=== PATIENT | male | born 1945 | race Caucasian/White ===

== ENCOUNTER 2023-12-20 10:29 | Outpatient (CLI) | payer MEDICARE, SELFPAY ==
[2023-12-20 12:07] LABS: PSA Diagnostic* < 0.06 ng/mL (0.10-4.00)
== END 2023-12-20 10:30 | disposition home or self-care (01) ==
PROVIDERS: Visit Provider Physician Assistant
DX: C61 Malignant neoplasm of prostate (principal)
CPT/HCPCS: 36415; 84153

== ENCOUNTER 2024-02-04 18:54 | Emergency (ER) | payer MEDICARE, SELFPAY ==
[2024-02-04] VITALS (38 sets, daily range): BP systolic 127–166; BP diastolic 57–77; PULSE 59–73; RESP 12–18; O2SAT 94–100; BMI 27.2
--- NOTE | 2024-02-04 18:58 | CRLHL7_ITS ---
For Patients: As a result of the Century Cures Act, medical imaging exams and procedure reports are released immediately into your electronic medical record. You may view this report before your referring provider. If you have questions, please contact your health care provider. INDICATION: Right-sided weakness. COMPARISON: None. TECHNIQUE: CT of the head without IV contrast. Coronal and sagittal reconstructions. FINDINGS: No intracranial hemorrhage, mass effect, or evidence of acute infarct. No midline shift. No abnormal extra-axial fluid collections. Mild generalized cerebral and cerebellar volume loss. Chronic appearing lacunar infarct in the right lateral basal ganglia. Ventricular caliber is within normal limits. Orbits and extraocular muscles are symmetric. The visualized paranasal sinuses and mastoid air cells are clear. Nonspecific subcutaneous calcification in the right temporal scalp. Soft tissues are otherwise unremarkable. No acute fracture identified. IMPRESSION: 1. No acute intracranial findings. 2. Chronic appearing lacunar infarct in the right lateral basal ganglia. Please note that all CT scans at this facility use dose modulation, iterative reconstruction, and/or weight-based dosing when appropriate to reduce radiation dose to as low as reasonably achievable. Dictated by Ayana Garibay MD @ 02/04/2024 7:30:58 PM (Electronically Signed)
--- NOTE | 2024-02-04 19:02 | ED_ITS ---
HPI - Neuro Symptoms/Deficit General Time Seen by Provider: 19:02 Date Seen: 02/04/24 Chief Complaint: Neuro Symptoms/Altered Deficit Stated Complaint: Dizziness Time Seen by Provider: 02/04/24 19:01 Source: patient and family Mode of arrival: ambulatory Limitations: no limitations History of Present Illness HPI Narrative: Torito is a very pleasant 78-year-old male with history of 2 heart attacks, type 2 diabetes, hyperlipidemia who comes to the emergency room for evaluation regarding dizziness right-sided leaning and facial numbness. Torito notes that he has been doing well and is very active. He usually lives in [place] but is up here for the summer camping in an RV near his children. He notes at 1700 hours he was sitting at his son's house and had the sudden onset of dizziness, right facial numbness, feeling like there was a lump in his throat questionable difficulty swallowing and difficulty with walking stating that he kept leaning to the right. This is never happened to him before. He is not on any anticoagulation except for aspirin. He has no recent history of tick bites but again has been camping and been all over the [place] He denies any unusual rashes. When this happened he broke out into a sweat. He denies chest pain difficulty breathing. He denies nausea vomiting or visual changes. Volunteers that he quit drinking a year ago. No drug use no tobacco use. We do ascertain dizziness is lightheadedness. No vertigo or spinning type sensation. Has not felt this way in the past. Related Data Home Medications ?Medication ?Instructions ?Recorded ?Confirmed aspirin 325 mg capsule 325 mg PO DAILY 02/04/24 02/04/24 glimepiride 1 mg tablet 1 mg PO BID 02/04/24 02/04/24 metformin 1,000 mg tablet 1,000 mg PO BID 02/04/24 02/04/24 metoprolol succinate 25 mg 25 mg PO QAM 02/04/24 02/04/24 tablet,extended release 24 hr simvastatin 20 mg tablet 20 mg PO DAILY 02/04/24 02/04/24 tamsulosin 0.4 mg capsule 0.4 mg PO QPM 02/04/24 02/04/24 Allergies Allergy/AdvReac Type Severity Reaction Status Date / Time bee venom protein (honey bee) Allergy Severe Anaphylaxis Verified 02/04/24 20:14 Review of Systems Status of ROS: Reports: 10 or more systems reviewed and unremarkable except as noted in History and below Const: Denies: fever or chills Eyes: Denies: change in vision or blurry vision ENMT: Reports: difficulty swallowing; Denies: throat pain or neck pain Cardio: Denies: chest pain, palpitations, edema, swelling of feet/ankles or shortness of breath with exertion Resp: Denies: shortness of breath or cough GI: Reports: difficulty swallowing; Denies: abdominal pain Musculo: Denies: neck pain PFSH PFSH Social History Smoking Status: Former smoker Do you use any of these nicotine containing products: None Second hand tobacco smoke exposure: No How often do you have a drink containing alcohol: never AUDIT-C Alcohol total score: 0 Non-prescribed substance use: denies use Exam Narrative: Exam Narrative: Torito is alert and oriented. Very subtle dysarthria but speech content and words are appropriate. Head is atraumatic normocephalic. No nystagmus. EOM is full pupils are equal round reactive. Visual brandon appear to be intact. Face symmetrical with eyebrow raise smile tongue is midline. Neck is supple. Heart with regular rate and rhythm and lungs are clear to auscultation. I did have patient sit up. This was with some difficulty. He fell to the right but was able to stop himself from hitting the side rails and then sat back up. Upper ex tremity strength and motor appears to be intact but finger to nose on the right is with some ataxia. Lower extremity strength and motor intact in the bed. Able to kick my hand without difficulty and lift legs off of the bed. Unable to test ambulation at this time as he is going over to CT. NIH stroke scale 3. Const: Vital Signs, click to edit/add: Vital Signs - 24 hr 02/04/24 19:15 02/04/24 19:20 02/04/24 19:30 Pulse Rate 67 70 Pulse Rate [Pulse Oximeter] 71 Respiratory Rate 16 18 14 Blood Pressure 161/71 H 152/61 H Blood Pressure [Le ft Upper Arm] 166/77 H Pulse Oximetry 98 99 99 Oxygen Delivery Me thod Room Air 02/04/24 19:45 02/04/24 20:07 02/04/24 20:15 Pulse Rate 69 68 68 Pulse Rate [Pulse Oximeter] Respiratory Rate 12 14 12 Blood Pressure 152/72 H 143/58 H Blood Pressure [Le ft Upper Arm] Pulse Oximetry 98 95 98 Oxygen Delivery Me thod 02/04/24 20:18 02/04/24 20:30 02/04/24 20:32 Pulse Rate 67 63 62 Pulse Rate [Pulse Oximeter] Respiratory Rate Blood Pressure 161/75 H Blood Pressure [Le ft Upper Arm] Pulse Oximetry 96 98 94 Oxygen Delivery Me thod 02/04/24 20:45 02/04/24 20:47 02/04/24 21:00 Pulse Rate 62 63 69 Pulse Rate [Pulse Oximeter] Respiratory Rate Blood Pressure 162/67 H Blood Pressure [Le ft Upper Arm] Pulse Oximetry 94 98 94 Oxygen Delivery Me thod 02/04/24 21:02 02/04/24 21:15 02/04/24 21:17 Pulse Rate 64 65 62 Pulse Rate [Pulse Oximeter] Respiratory Rate Blood Pressure 157/65 H 153/70 H Blood Pressure [Le ft Upper Arm] Pulse Oximetry 96 98 98 Oxygen Delivery Me thod 02/04/24 21:30 02/04/24 21:32 02/04/24 21:33 Pulse Rate 63 64 63 Pulse Rate [Pulse Oximeter] Respiratory Rate Blood Pressure 151/65 H Blood Pressure [Le ft Upper Arm] Pulse Oximetry 95 94 95 Oxygen Delivery Me thod 02/04/24 21:45 02/04/24 21:47 02/04/24 22:00 Pulse Rate 60 59 L 69 Pulse Rate [Pulse Oximeter] Respiratory Rate Blood Pressure 152/65 H Blood Pressure [Le ft Upper Arm] Pulse Oximetry 95 94 97 Oxygen Delivery Me thod 02/04/24 22:03 02/04/24 22:15 02/04/24 22:17 Pulse Rate 62 59 L 60 Pulse Rate [Pulse Oximeter] Respiratory Rate Blood Pressure 147/69 H 161/67 H Blood Pressure [Le ft Upper Arm] Pulse Oximetry 99 97 96 Oxygen Delivery Me thod 02/04/24 22:30 02/04/24 22:32 02/04/24 22:46 Pulse Rate 59 L 59 L 61 Pulse Rate [Pulse Oximeter] Respiratory Rate Blood Pressure 149/62 H Blood Pressure [Le ft Upper Arm] Pulse Oximetry 96 97 99 Oxygen Delivery Me thod 02/04/24 22:47 02/04/24 22:48 02/04/24 23:00 Pulse Rate 64 63 60 Pulse Rate [Pulse Oximeter] Respiratory Rate Blood Pressure 154/64 H Blood Pressure [Le ft Upper Arm] Pulse Oximetry 99 100 98 Oxygen Delivery Me thod 02/04/24 23:02 02/04/24 23:15 Pulse Rate 61 62 Pulse Rate [Pulse Oximeter] Respiratory Rate Blood Pressure 137/74 Blood Pressure [Le ft Upper Arm] Pulse Oximetry 100 96 Oxygen Delivery Me thod Documenting provider has reviewed patient's vital signs: yes Course Course ED Course: I am called to patient's bedside and immediately we elect to go to CT. I have significant concerns this represents a stroke. Other possibilities include migraine headache, tick-borne illness, other viral illness. Patient toleratedCT well. When he returns he did have some improvement of dysarthria but we now note that it seems to be happening again. He is protecting his airway. Currently neurology talking to patient. CBC, comprehensive panel, Lyme, tick-borne panel, COVID currently ordered. Reevaluation(s) Reevaluation #1: I spoke with neurologist and discuss my findings which included intermittent dysarthria, challenges when trying to sit up in bed and tendency to fall to the right, ataxia on [id number] of the right hand. At this time does not feel the need to initiate lytic. States that he feels those symptoms have resolved. Again, I did discuss patient's ataxia with right arm movement, inability to sit up without leaning to the right, as well as intermittent dysarthria. Will proceed CTA head and neck. Also advised to give dose of aspirin however Torito states he took 2 325 mg aspirin prior to his arrival. Neurology recommend lying is flat as possible as well as MRI tomorrow morning. 1 L bolus of fluid, patient has already received 500 mL. Reevaluation #2: 2030 hours Upon Torito's return from CT I was able to test him with a negative Romberg. Getting him out of bed however shows him to be very ataxic with difficulty taking a step. He also describes continued tingling in his right face and right arm. I have asked to speak to Neurology again. 2049: I did speak with Neurology again I did did state that I had gotten Torito up and he does have significant difficulty walking, ataxia, placing his feet in front of him and with his balance. At this time he does not feel the plan should change would like to continue with what were doing. I specifically questioned the use of a lytic as we are still under the 4-1/2 hour penny and he does not feel that that is necessary. Patient is describing some pain in the right back of his neck. He denies any recent chiropractic treatment. He does note that he had is neck turned talking to his earlier. No other trauma noted. Reevaluation #3: Unfortunately, we will not have MRI capability tomorrow. Contacting Neurology to see if waiting until WednesdayFebruary 06 is acceptable for an MRI. If not will need to be transferred tonight. Vital Signs Vital signs: Initial Vital Signs Pulse Rate 67 02/04/24 19:15 Respiratory Rate 16 02/04/24 19:15 Blood Pressure 161/71 H 02/04/24 19:15 Blood Pressure Mean 101 02/04/24 19:15 Pulse Oximetry 98 02/04/24 19:15 Vital Signs Pulse Rate 67 02/04/24 19:15 Respiratory Rate 16 02/04/24 19:15 Blood Pressure 161/71 H 02/04/24 19:15 Pulse Oximetry 98 02/04/24 19:15 Pulse Rate 62 02/04/24 23:15 Respiratory Rate 12 02/04/24 20:15 Blood Pressure 137/74 02/04/24 23:02 Pulse Oximetry 96 02/04/24 23:15 Oxygen Delivery Method Room Air 02/04/24 19:20 Medications Administered Medications: Discontinued Medications Generic Name Dose Route Start Last Admin Trade Name Freq PRN Reason Stop Dose Admin Sodium Chloride 500 mls @ 500 mls/hr 02/04/24 19:01 02/04/24 20:20 0.9 % Sodium Chloride 500 Ml IV 02/04/24 20:00 Infused .Q1H ONE Infusion Sodium Chloride 500 mls @ 500 mls/hr 02/04/24 19:44 02/04/24 21:50 0.9 % Sodium Chloride 500 Ml IV 02/04/24 20:43 Infused .Q1H ONE Infusion MDM - Neuro Symptoms/Deficit MDM Narrative Medical decision making narrative: 1. CVA-patient noted to have the sudden onset of lightheadedness described as dizziness, intermittent dysarthria, feeling like there is something in his throat, difficulty with ambulation and tendency to list to the right at approximately 1700 hours. Upon his presentation he immediately received CT which was without any acute findings. I spoke with Neurology after my exam. Neurology did not feel that Torito was a candidate for lytics but did suggest aspirin-which patient had already taken prior to his arrival-lying flat as possible and CTA of head and neck. This was done. There is some slight stenosis of internal carotid otherwise no acute clots. Patient continues to feel similar to his arrival. Again, I did describe my initial exam with an NIH SS of 3 at that time I had not been able to get patient up but when I did he did have significant difficulty walking. I spoke to Neurology after this finding and again have been instructed to follow our plan which includes daily full aspirin, MRI, lying flat, and hospitalization for observation. At this time EKG without evidence of arrhythmia. Troponin is negative. Given extensive travel tick borne tests and Lyme are pending. Patient has tested negative for COVID. Unfortunately we will not have MRI capability this weekend. I have asked neurology opinion regarding staying here in [place] for MRI on WednesdayFebruary 06 verses transfer. 2. Disposition -patient has been accepted for transfer to [facility] by ED physician Dr. Pereira. Beds are tight at [facility] and I did speak to Neurology about waiting for MRI until Wednesday and he has asked that patient come to the hospital. Patient will be transported by ground BLS ambulance. Patient noted to have systolic blood pressure 154. No evidence of cardiac arrhythmia, reassuring EKG and negative troponin. 2300 hrs: Note and that at approximately 2300 hours patient states he is feeling better. He has had resolution of the tingling of his face. He notes that he did get up to the bathroom and nursing staff also notes that he was more steady. Thus symptoms of ataxia common tingling of his face and right arm as well as intermittent dysarthria were present for approximately 6 hours and are now resolved. Lab Data Attestation: I reviewed the patient's lab results. Labs: Lab Results 02/04/24 02/04/24 Range/Units 19:05 19:20 WBC 7.82 (4.50-11.00) K/uL RBC 3.88 L (4.30-5.90) m/uL Hgb 12.4 L (13.5-17.5) gm/dL Hct 37.3 (37.0-53.0) % MCV 96 (80-100) fL MCH 32 (26-34) pg MCHC 33 (32-36) gm/dL RDW Coeff of Adriana 13.6 (11.5-15.5) % Plt Count 211 (140-440) K/uL Neut % (Auto) 77.1 H (42.0-72.0) % Lymph % (Auto) 15.6 L (20-44) % [place] % (Auto) 6.0 (0.0-11.0) % Eos % (Auto) 0.9 (0.0-7.0) % Baso % (Auto) 0.3 (0.0-3.0) % Neut # (Auto) 6.00 (1.7-7.0) K/uL Lymph # (Auto) 1.20 (0.90-2.90) K/uL [place] # (Auto) 0.50 (0.00-0.90) K/UL Eos # (Auto) 0.07 (0.00-0.50) K/uL Baso # (Auto) 0.02 (0.00-0.30) K/uL Abs Immat Gran (auto) 0.01 (0.00-0.30) K/uL Imm/Tot Granulo (auto) 0.1 % Sodium 139 (135-149) mmol/L Potassium 4.1 (3.6-5.1) mmol/L Chloride 106 (96-114) mmol/L Carbon Dioxide 23 (20-32) mmol/L Anion Gap 10 (7-15) mEq/L BUN 24 (7-30) mg/dL Creatinine 0.8 (0.5-1.5) mg/dL Estimated Creat Clear 66.93 Estimated GFR 92 ml/min Glucose 102 (60-115) mg/dL Calcium 9.8 (8.4-10.6) mg/dL Total Bilirubin 0.8 (0.1-1.5) mg/dL AST 19 (12-35) U/L ALT 12 (4-50) U/L Alkaline Phosphatase 44 (40-150) U/L C-Reactive Protein < 0.5 L (0.5-1.0) mg/dL Total Protein 7.2 (6.0-8.3) g/dL Albumin 4.6 (3.3-5.0) g/dL SARS-CoV-2 (PCR) Negative SARS-CoV-2 (Negative) POC Troponin I 0.00 L (0.01-0.04) ng/ml Imaging Data CT scan - head: Attestation: I have reviewed the pertinent imaging results. My impression: By my read no acute findings. Radiologist's impression: No intracranial hemorrhage, mass effect, or evidence of acute infarct. No midline shift. No abnormal extra-axial fluid collections. Mild generalized cerebral and cerebellar volume loss. Chronic appearing lacunar infarct in the right lateral basal ganglia. Ventricular caliber is within normal limits. Orbits and extraocular muscles are symmetric. The visualized paranasal sinuses and mastoid air cells are clear. Nonspecific subcutaneous calcification in the right temporal scalp. Soft tissues are otherwise unremarkable. No acute fracture identified. IMPRESSION: 1. No acute intracranial findings. 2. Chronic appearing lacunar infarct in the right lateral basal ganglia. CTA head and neck: Attestation: I have reviewed the pertinent imaging results. Radiologist's impression: CTA head: No proximal large vessel occlusion or flow-limiting stenosis. CTA neck: Mild stenosis of the internal carotid artery origins from atherosc lerotic plaque. No evidence of cervical arterial dissection. ECG Data Attestation: I personally reviewed and interpreted this ECG as follows: ECG interpretation date: 02/04/24 Interpretation: EKG by my read shows sinus rhythm at a rate of 72. Prolonged AR interval at 26.8. Isolated Q-wave in 3. No other acute ST or T-wave changes. Discharge Plan Discharge Clinical Impression: Cerebrovascular accident Qualifiers: CVA mechanism: other Qualified Code(s): I63.89 - Other cerebral infarction Patient Disposition: Xfer [facility] Discharge Location: [facility] Condition: Stable Prescriptions: No Action glimepiride 1 mg tablet 1 mg PO BID metformin 1,000 mg tablet 1,000 mg PO BID metoprolol succinate 25 mg tablet extended release 24 hr 25 mg PO QAM tamsulosin 0.4 mg capsule 0.4 mg PO QPM simvastatin 20 mg tablet 20 mg PO DAILY aspirin 325 mg capsule 325 mg PO DAILY Stand Alone Forms: [facility] Info Instructions
[2024-02-04 19:17] LABS: Basophils Absolute Auto 0.02 K/uL (0.00-0.30); Basophils Percent Auto 0.3 % (0.0-3.0); Eosinophils Absolute Auto 0.07 K/uL (0.00-0.50); Eosinophils Percent Auto 0.9 % (0.0-7.0); Hematocrit 37.3 % (37.0-53.0); Hemoglobin* 12.4 gm/dL (13.5-17.5); Immature Granulocytes Abs Auto 0.01 K/uL (0.00-0.30); Immature Granulocytes Pct Auto 0.1 %; Lymphocytes Percent Auto 15.6 % (20-44); Mean Corpuscular HGB Conc 33 gm/dL (32-36); Mean Corpuscular Hemoglobin 32 pg (26-34); Mean Corpuscular Volume 96 fL (80-100); Neutrophils Percent Auto 77.1 % (42.0-72.0); Platelet Count* 211 K/uL (140-440); RDW Coefficient of Variation % 13.6 % (11.5-15.5); Red Blood Count 3.88 m/uL (4.30-5.90); White Blood Count* 7.82 K/uL (4.50-11.00)
[2024-02-04] MEDS: 0.9 % SODIUM CHLORIDE 500 ML 500 ML IV ×2 (19:20→20:38)
[2024-02-04 19:28] LABS: Slide Review Reflex No
[2024-02-04 19:37] LABS: Albumin* 4.6 g/dL (3.3-5.0); Chloride* 106 mmol/L (96-114)
[2024-02-04 19:38] LABS: Potassium* 4.1 mmol/L (3.6-5.1); Sodium* 139 mmol/L (135-149)
[2024-02-04 19:40] LABS: Creatinine* 0.8 mg/dL (0.5-1.5); Est. Creatinine Clearance* 66.93; Estimated Glomerular Filt Rate 92 ml/min
[2024-02-04 19:41] LABS: Alanine Aminotransferase* 12 U/L (4-50); Alkaline Phosphatase* 44 U/L (40-150); Anion Gap 10 mEq/L (7-15); Aspartate Amino Transferase* 19 U/L (12-35); Bilirubin Total* 0.8 mg/dL (0.1-1.5); Blood Urea Nitrogen* 24 mg/dL (7-30); Calcium* 9.8 mg/dL (8.4-10.6); Carbon Dioxide* 23 mmol/L (20-32); Glucose* 102 mg/dL (60-115); Total Protein* 7.2 g/dL (6.0-8.3)
--- NOTE | 2024-02-04 19:43 | CRLHL7_ITS ---
For Patients: As a result of the Century Cures Act, medical imaging exams and procedure reports are released immediately into your electronic medical record. You may view this report before your referring provider. If you have questions, please contact your health care provider. CLINICAL HISTORY: Right-sided weakness. TECHNIQUE: Standard helical CT image acquisition through the neck was performed after intravenous contrast bolus enhancement. 3D and MIP reconstructions were performed at a separate workstation and permanently archived. COMPARISON: None available. FINDINGS: The origins of the great vessels from the aortic arch are patent. The common carotid arteries are patent. There is mild (<50%) atherosclerotic stenosis of the proximal left ICA by NASCET criteria. No significant stenosis of the proximal right ICA. The more distal cervical ICAs are patent. Probable moderate stenosis at the origin of the dominant left vertebral artery. The origin of the non dominant right vertebral artery is patent. The cervical segment of the left vertebral artery is patent. 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 The mid to distal intracranial right vertebral artery is opacified by way of retrograde flow from the vertebrobasilar junction. IMPRESSION: 1. 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 The mid to distal intracranial right vertebral artery is opacified by way of retrograde flow from the vertebrobasilar junction. 2. Mild (<50%) atherosclerotic stenosis of the proximal left ICA by NASCET criteria. Please note that all CT scans at this facility use dose modulation, iterative reconstruction, and/or weight-based dosing when appropriate to reduce radiation dose to as low as reasonably achievable. Dictated by Gurpreet Lewis MD @ 02/05/2024 10:28:35 AM (Electronically Signed)
--- NOTE | 2024-02-04 19:43 | CRLHL7_ITS ---
For Patients: As a result of the Century Cures Act, medical imaging exams and procedure reports are released immediately into your electronic medical record. You may view this report before your referring provider. If you have questions, please contact your health care provider. CLINICAL HISTORY: Right-sided weakness. TECHNIQUE: Standard helical CT image acquisition through the head following the administration of intravenous contrast was performed. 3D and MIP reconstructions were performed at a separate workstation and permanently archived. COMPARISON: None available. FINDINGS: Intracranial atherosclerotic disease involves the anterior and posterior circulation noting moderate stenosis of the proximal intracranial left vertebral artery as well as at least mild stenoses of the clinoid/supraclinoid ICAs. No evidence of cerebral aneurysm. No findings to suggest an arterial-venous shunting lesion. The major dural venous sinuses and deep venous system are patent. IMPRESSION: Intracranial atherosclerotic disease involves the anterior and posterior circulation without proximal large vessel occlusion. Please note that all CT scans at this facility use dose modulation, iterative reconstruction, and/or weight-based dosing when appropriate to reduce radiation dose to as low as reasonably achievable. Dictated by Gurpreet Lewis MD @ 02/05/2024 10:36:06 AM (Electronically Signed)
[2024-02-04 19:44] LABS: C Reactive Protein* < 0.5 mg/dL (0.5-1.0)
[2024-02-04 20:02] LABS: SARS PCR* Negative SARS-CoV-2 (Negative)
[2024-02-06 18:33] LABS: Lyme ELISA Reflex 0.55 IV (<=0.90)
[2024-02-07 08:32] LABS: Anaplasma phagocyt PCR Not Detected; Babesia microti by PCR Not Detected; Babesia species by PCR Not Detected; Ehrlichia chaffeensis by PCR Not Detected; Ehrlichia ewingii/canis by PCR Not Detected; Ehrlichia muris-like by PCR Not Detected
== END 2024-02-05 00:01 | disposition short-term general hospital (02) ==
PROVIDERS: Emergency Provider Family Medicine
DX: I63.89 Other cerebral infarction (principal)
CPT/HCPCS: 36415; 70450; 70496; 70498; 80053; 84484; 85025; 86140; 86618; 87468; 87469; 87484; 87635; 87798; 93005; 99284; 99285; G0427; J7030; Q9967

== ENCOUNTER 2024-02-04 22:48 | Outpatient (CLI) | payer MEDICARE, SELFPAY | END 2024-02-04 22:49 | disposition home or self-care (01) | LOC: AMB 02-05 23:38 | PROVIDERS: Visit Provider Student in an Organized Health Care Education/Training Program | DX: R53.1 Weakness (principal); R42 Dizziness and giddiness; R20.0 Anesthesia of skin | CPT/HCPCS: A0425; A0427 ==

== ENCOUNTER 2024-03-14 13:16 | Outpatient (RCR) | payer MEDICARE, SELFPAY | END 2024-03-15 07:33 | disposition home or self-care (01) | PROVIDERS: PCP Family Medicine; Visit Provider Family Medicine | DX: G45.9 Transient cerebral ischemic attack, unspecified (principal); Z51.89 Encounter for other specified aftercare | CPT/HCPCS: 97161; 97535 ==

== ENCOUNTER 2024-07-02 09:19 | Outpatient (CLI) | payer MEDICARE, SELFPAY | END 2024-07-02 09:20 | disposition home or self-care (01) | PROVIDERS: PCP Family Medicine; Visit Provider Family Medicine | DX: R55 Syncope and collapse (principal); R11.2 Nausea with vomiting, unspecified | CPT/HCPCS: A0425; A0427 ==

== ENCOUNTER 2024-07-02 09:52 | Emergency (ER) | payer MEDICARE, SELFPAY ==
[2024-07-02] VITALS (40 sets, daily range): BP systolic 95–140; BP diastolic 47–116; PULSE 54–95; RESP 20; TEMP 36.8; O2SAT 80–94; BMI 24.5
--- NOTE | 2024-07-02 09:55 | CRLHL7_ITS ---
For Patients: As a result of the Century Cures Act, medical imaging exams and procedure reports are released immediately into your electronic medical record. You may view this report before your referring provider. If you have questions, please contact your health care provider. INDICATION: Headaches. Trauma TECHNIQUE: Noncontrast axial CT of the head is submitted. Compared to prior study from February 04, 2024. FINDINGS: Mild cerebral atrophy. 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 The remainder of the ventricles, sulci and gyri are of normal size, shape and contour for age and degree of atrophy. Midline structures are centrally located. No convincing evidence of suspicious intra- or extra-axial fluid collections. Minimal patchy regions of decreased attenuation within the periventricular and subcortical white matter of both cerebral hemispheres. Soft tissue swelling overlying the left orbit likely representing presence of a hematoma or laceration. IMPRESSION: 1. No radiographic evidence of acute intracranial abnormalities. 2. Mild cerebral atrophy. 3. 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 4. Minimal supratentorial white matter changes that are non-specific, but statistically most likely related to chronic small vessel ischemic disease. 5. Soft tissue swelling overlying the left orbit likely representing presence of a hematoma or laceration. Please note that all CT scans at this facility use dose modulation, iterative reconstruction, and/or weight-based dosing when appropriate to reduce radiation dose to as low as reasonably achievable. Dictated by Octavio Ho MD @ 07/02/2024 10:13:18 AM (Electronically Signed)
--- NOTE | 2024-07-02 09:55 | CRLHL7_ITS ---
For Patients: As a result of the Century Cures Act, medical imaging exams and procedure reports are released immediately into your electronic medical record. You may view this report before your referring provider. If you have questions, please contact your health care provider. Indication: Neck pain. Trauma. Technique: Noncontrast axial CT of the cervical spine with coronal and sagittal reformats are provided. No comparisons. Findings: The overall stature, alignment of the cervical spine is within normal limits. No convincing evidence of suspicious bony fragments narrowing the central canal or neural foramina. Prevertebral soft tissues, cervical airway, dens and lateral masses are within normal limits. Mild to moderate scattered degenerative changes of the cervical spine. Impression: 1. No convincing radiographic evidence of acute osseous injury. 2. [id number] scattered degenerative changes of the cervical spine. Please note that all CT scans at this facility use dose modulation, iterative reconstruction, and/or weight-based dosing when appropriate to reduce radiation dose to as low as reasonably achievable. Dictated by Octavio Ho MD @ 07/02/2024 10:14:20 AM (Electronically Signed)
--- NOTE | 2024-07-02 10:01 | ED_ITS ---
HPI - General Adult General Time Seen by Provider: 09:57 Date Seen: 07/02/24 Chief complaint: Laceration/Wound Stated complaint: Fall, head lac Time Seen by Provider: 07/02/24 09:57 Source: patient, EMS and RN notes reviewed Mode of arrival: EMS Limitations: no limitations History of Present Illness HPI narrative: Patient is a 78-year-old male that is brought by EMS after possible syncopal episode with head injury. He is brought in as a trauma team activation. Patient had been taking down [employer] decorations, got up to take medicines where he started to feel lightheaded and dizzy and reportedly collapsed, hit his head on the ground. When EMS got there he was bleeding, they got a head wrap on him, did not visualize the extent of the laceration on his forehead or face but did get bleeding controlled with a pressure dressing. Patient reportedly is on a blood thinner, unknown what type at this time. Patient complains of a mild headache, when they 1st sat him up, had an emesis, maybe became slightly unresponsive during that but patient remembers throwing up, states he remembers everything. Had a 2nd emesis in route and was given 4 of IV Zofran by EMS. On arrival patient is sitting up on the ER cot, has a bandage over his right head and forehead, some dried blood below this but no active bleeding noted. Pupils are equal round reactive, he is conversive and appropriate. GCS is 15/15. Moving arms and legs. Denies current nausea, feels like he might actually have to have diarrhea. Will proceed for stat head CT and cervical spine imaging. Patient seen after he is back from CT imaging. He is feeling better as far as nausea. Admits that he felt queasy all night like he might throw up. Had not ate or drank this morning. Got up and felt lightheaded and then the next thing he remembers is being on the floor. He is not exactly sure what he hit his face on. Besides mild headache and mild pain at the site of the laceration, denies any pain now. No neck or back pain. He has not had any diarrhea yet, denies any underlying abdominal pain through this. No cough or cold symptoms. No fevers. Has not noted any chest pain, no palpitations, no irregular heart rate. He is on Eliquis for blood thinner from his recent stroke in February. Denies any visual changes, specifically no double vision or blurry vision at this time. Related Data Home Medications ?Medication ?Instructions ?Recorded ?Confirmed aspirin 325 mg capsule 325 mg PO DAILY 02/04/24 02/04/24 glimepiride 1 mg tablet 1 mg PO BID 02/04/24 02/04/24 metformin 1,000 mg tablet 1,000 mg PO BID 02/04/24 07/02/24 metoprolol succinate 25 mg 25 mg PO QAM 02/04/24 02/04/24 tablet,extended release 24 hr simvastatin 20 mg tablet 20 mg PO DAILY 02/04/24 02/04/24 tamsulosin 0.4 mg capsule 0.4 mg PO QPM 02/04/24 07/02/24 apixaban 5 mg tablet (Eliquis) 5 mg PO BID 07/02/24 07/02/24 atorvastatin 40 mg tablet 40 mg PO QPM 07/02/24 07/02/24 clopidogrel 75 mg tablet 75 mg PO DAILY 07/02/24 07/02/24 Previous Rx's ?Medication ?Instructions ?Recorded ondansetron 4 mg disintegrating 4 mg PO Q6H PRN nausea and 07/02/24 tablet vomiting #10 tabs Allergies Allergy/AdvReac Type Severity Reaction Status Date / Time bee venom protein (honey bee) Allergy Severe Anaphylaxis Verified 02/04/24 20:14 Review of Systems Status of ROS: Reports: 6 or more systems reviewed and unremarkable except as noted in History and below PFSH PFSH Social History Smoking Status: Former smoker Do you use any of these nicotine containing products: None Second hand tobacco smoke exposure: No How often do you have a drink containing alcohol: never AUDIT-C Alcohol total score: 0 Non-prescribed substance use: denies use Exam Const: Vital Signs, click to edit/add: Vital Signs - 24 hr 07/02/24 10:10 07/02/24 10:16 07/02/24 10:17 Temperature Pulse Rate 58 L 59 L Pulse Rate [Pulse Oximeter] Pulse Rate [orthos tatic lying] Pulse Rate [orthos tatic sitting] Pulse Rate [orthos tatic standing Pul se Oximeter] Respiratory Rate Blood Pressure 95/58 L 113/48 L Blood Pressure [Ri ght Upper Arm] Blood Pressure [or thostatic lying Ri ght Arm] Blood Pressure [or thostatic sitting] Blood Pressure [or thostatic standing ] Pulse Oximetry 90 90 Oxygen Delivery Me thod 07/02/24 10:21 07/02/24 10:22 07/02/24 10:30 Temperature 98.2 F Pulse Rate 61 54 L Pulse Rate [Pulse Oximeter] 58 L Pulse Rate [orthos tatic lying] Pulse Rate [orthos tatic sitting] Pulse Rate [orthos tatic standing Pul se Oximeter] Respiratory Rate 20 Blood Pressure 109/53 L Blood Pressure [Ri ght Upper Arm] 95/58 L Blood Pressure [or thostatic lying Ri ght Arm] Blood Pressure [or thostatic sitting] Blood Pressure [or thostatic standing ] Pulse Oximetry 93 91 94 Oxygen Delivery Me thod Room Air 07/02/24 10:32 07/02/24 10:44 07/02/24 10:45 Temperature Pulse Rate 59 L 59 L 58 L Pulse Rate [Pulse Oximeter] Pulse Rate [orthos tatic lying] Pulse Rate [orthos tatic sitting] Pulse Rate [orthos tatic standing Pul se Oximeter] Respiratory Rate Blood Pressure 110/48 L 98/47 L Blood Pressure [Ri ght Upper Arm] Blood Pressure [or thostatic lying Ri ght Arm] Blood Pressure [or thostatic sitting] Blood Pressure [or thostatic standing ] Pulse Oximetry 92 93 93 Oxygen Delivery Me thod 07/02/24 10:52 07/02/24 11:00 07/02/24 11:02 Temperature Pulse Rate 55 L 56 L 57 L Pulse Rate [Pulse Oximeter] Pulse Rate [orthos tatic lying] Pulse Rate [orthos tatic sitting] Pulse Rate [orthos tatic standing Pul se Oximeter] Respiratory Rate Blood Pressure 111/47 L 107/49 L Blood Pressure [Ri ght Upper Arm] Blood Pressure [or thostatic lying Ri ght Arm] Blood Pressure [or thostatic sitting] Blood Pressure [or thostatic standing ] Pulse Oximetry 92 92 93 Oxygen Delivery Me thod 07/02/24 11:12 07/02/24 11:15 07/02/24 11:22 Temperature Pulse Rate 64 55 L 57 L Pulse Rate [Pulse Oximeter] Pulse Rate [orthos tatic lying] Pulse Rate [orthos tatic sitting] Pulse Rate [orthos tatic standing Pul se Oximeter] Respiratory Rate Blood Pressure 100/52 L 105/52 L Blood Pressure [Ri ght Upper Arm] Blood Pressure [or thostatic lying Ri ght Arm] Blood Pressure [or thostatic sitting] Blood Pressure [or thostatic standing ] Pulse Oximetry 91 92 93 Oxygen Delivery Me thod 07/02/24 11:27 07/02/24 11:30 07/02/24 11:32 Temperature Pulse Rate 57 L 63 Pulse Rate [Pulse Oximeter] Pulse Rate [orthos tatic lying] 68 Pulse Rate [orthos tatic sitting] 73 Pulse Rate [orthos tatic standing Pul se Oximeter] 76 Respiratory Rate Blood Pressure 113/57 L Blood Pressure [Ri ght Upper Arm] Blood Pressure [or thostatic lying Ri ght Arm] 132/116 H Blood Pressure [or thostatic sitting] 125/113 H Blood Pressure [or thostatic standing ] 116/86 Pulse Oximetry 93 92 Oxygen Delivery Me thod 07/02/24 11:42 07/02/24 11:57 07/02/24 11:58 Temperature Pulse Rate 65 65 87 Pulse Rate [Pulse Oximeter] Pulse Rate [orthos tatic lying] Pulse Rate [orthos tatic sitting] Pulse Rate [orthos tatic standing Pul se Oximeter] Respiratory Rate Blood Pressure 131/84 132/116 H Blood Pressure [Ri ght Upper Arm] Blood Pressure [or thostatic lying Ri ght Arm] Blood Pressure [or thostatic sitting] Blood Pressure [or thostatic standing ] Pulse Oximetry 94 89 Oxygen Delivery Me thod 07/02/24 12:00 07/02/24 12:01 07/02/24 12:02 Temperature Pulse Rate 69 79 78 Pulse Rate [Pulse Oximeter] Pulse Rate [orthos tatic lying] Pulse Rate [orthos tatic sitting] Pulse Rate [orthos tatic standing Pul se Oximeter] Respiratory Rate Blood Pressure 125/113 H 116/86 Blood Pressure [Ri ght Upper Arm] Blood Pressure [or thostatic lying Ri ght Arm] Blood Pressure [or thostatic sitting] Blood Pressure [or thostatic standing ] Pulse Oximetry 88 Oxygen Delivery Me thod 07/02/24 12:12 Temperature Pulse Rate 69 Pulse Rate [Pulse Oximeter] Pulse Rate [orthos tatic lying] Pulse Rate [orthos tatic sitting] Pulse Rate [orthos tatic standing Pul se Oximeter] Respiratory Rate Blood Pressure 129/62 Blood Pressure [Ri ght Upper Arm] Blood Pressure [or thostatic lying Ri ght Arm] Blood Pressure [or thostatic sitting] Blood Pressure [or thostatic standing ] Pulse Oximetry 92 Oxygen Delivery Me thod On secondary survey, bandaging was removed, has a non bleeding about 1.5 cm laceration just below the outer eyebrow on the upper eyelid on the left side. Minimal swelling around this, no active bleeding at this time but does have dried blood over both sides of his face from where it did bleed. Symmetrical facial function, speech is normal. Pupils equal round reactive, sclera clear. Neck is supple, no midline tenderness over his neck, back inspected no traumatic change noted, no midline tenderness over the thoracic or lumbar spine. Lungs are clear, good air entry, no wheezing crackles. CV regular rate and rhythm, no murmur, normal S1-S2, no S3-S4. Abdomen is soft, nontender, nondistended, no organomegaly noted. Is moving his arms and legs, notes no numbness tingling in his extremities. No focal neurologic deficit noted at this time. Documenting provider has reviewed patient's vital signs: yes Course Course ED Course: Patient had stat CT imaging of his head and neck on arrival for syncopal head injury. In further discussion with him, this sounds like he may have had vasovagal syncope contributed by his nausea and lack of oral intake. Will initiate some IV fluids. His nausea is better. Will insure that this is not COVID her influenza. He certainly could be developing a gastroenteritis. Will check labs. Will repair his laceration of the eyelid just below the eyebrow on the left side. Patient is anticoagulated and no new neurologic deficits. Doubt that this could be pulmonary embolus given the anticoagulation and does not seem to be any new stroke symptoms. Will rule out intracranial bleeding with the head CT. Reevaluation(s) Time of Reevaluation #1: 11:33 Reevaluation #1: Family is now here with patient. Patient still feels like he might need to defecate. Nausea is still under control with the Zofran. Discussed with them that his labs are reassuring, he probably has an underlying gastroenteritis as the triple viral swab has come back negative. He is near completion of his 500 mL normal saline bolus. We will see how he does getting up, check orthostatics. Likely discharge with Alv[facility] as I would anticipate that he is going to have some ongoing GI symptoms for a bit. Time of Reevaluation #2: 12:07 Reevaluation #2: Patient is asymptomatic with orthostatic vitals. His blood pressure does support orthostatic changes but he is asymptomatic at this time, fluids have overall improved his blood pressure from arrival. He did complain of some low back pain doing these. Given this finding, believe likely musculoskeletal as he initially was not having pain. Will proceed with lumbar x-ray imaging at this time. Will also give dose of Tylenol. Time of Reevaluation #3: 13:28 Reevaluation #3: Did review x-ray report and the incidental findings with the patient. He does have a probable T12 anterior compression fraction. He is comfortable as long as he does not move. He has not tried narcotic medicines and would just like to try Tylenol. He understands that this is going to be painful and will take time. We did review that this is just mild and the superior endplate. Vital Signs Vital signs: Initial Vital Signs Blood Pressure 95/58 L 07/02/24 10:10 Blood Pressure Mean 70 07/02/24 10:10 Vital Signs Blood Pressure 95/58 L 07/02/24 10:10 Temperature 98.2 F 07/02/24 10:21 Pulse Rate 69 07/02/24 12:12 Respiratory Rate 20 07/02/24 10:21 Blood Pressure 129/62 07/02/24 12:12 Pulse Oximetry 92 07/02/24 12:12 Oxygen Delivery Method Room Air 07/02/24 10:21 Medications Administered Medications: Discontinued Medications Generic Name Dose Route Start Last Admin Trade Name Freq PRN Reason Stop Dose Admin Acetaminophen 1,000 mg 07/02/24 12:08 07/02/24 12:22 Acetaminophen 500 Mg Tablet PO 07/02/24 12:09 1,000 mg ONCE ONE Administration Sodium Chloride 500 mls @ 500 mls/hr 07/02/24 10:53 07/02/24 11:35 0.9 % Sodium Chloride 500 Ml IV 07/02/24 11:52 Infused .Q1H ONE Infusion Medical Decision Making Medical Records Medical records reviewed: Yes I reviewed the patient's medical records Medical records narrative: Did look in [facility] and patient is listed to have atrial fibrillation. Lab Data Lab results reviewed: Yes I reviewed the patient's lab results Labs: Lab Results 07/02/24 07/02/24 Range/Units 10:00 10:39 WBC 6.62 (4.50-11.00) K/uL RBC 3.83 L (4.30-5.90) m/uL Hgb 12.3 L (13.5-17.5) gm/dL Hct 37.1 (37.0-53.0) % MCV 97 (80-100) fL MCH 32 (26-34) pg MCHC 33 (32-36) gm/dL RDW Coeff of Adriana 13.9 (11.5-15.5) % Plt Count 189 (140-440) K/uL Neut % (Auto) 85.4 H (42.0-72.0) % Lymph % (Auto) 8.3 L (20-44) % Grady % (Auto) 5.1 (0.0-11.0) % Eos % (Auto) 0.8 (0.0-7.0) % Baso % (Auto) 0.2 (0.0-3.0) % Neut # (Auto) 5.70 (1.7-7.0) K/uL Lymph # (Auto) 0.50 L (0.90-2.90) K/uL Grady # (Auto) 0.30 (0.00-0.90) K/UL Eos # (Auto) 0.05 (0.00-0.50) K/uL Baso # (Auto) 0.01 (0.00-0.30) K/uL Abs Immat Gran (auto) 0.01 (0.00-0.30) K/uL Imm/Tot Granulo (auto) 0.2 % Sodium 134 L (135-149) mmol/L Potassium 4.0 (3.6-5.1) mmol/L Chloride 106 (96-114) mmol/L Carbon Dioxide 21 (20-32) mmol/L Anion Gap 7 (7-15) mEq/L BUN 17 (7-30) mg/dL Creatinine 0.7 (0.5-1.5) mg/dL Estimated Creat Clear 68.98 Estimated GFR 95 ml/min Glucose 134 H (60-115) mg/dL Lactate 1.5 (0.5-1.9) mmol/L Calcium 8.7 (8.4-10.6) mg/dL Total Bilirubin 1.1 (0.1-1.5) mg/dL AST 13 (12-35) U/L ALT 13 (4-50) U/L Alkaline Phosphatase 38 L (40-150) U/L Troponin I < 0.01 L (0.01-0.04) ng/mL NT-Pro-B Natriuret Pep 4730 pg/mL Total Protein 6.0 (6.0-8.3) g/dL Albumin 3.7 (3.3-5.0) g/dL SARS-CoV-2 (PCR) Negative SARS-CoV-2 (Negative) Influenza Type A (PCR) Negative PCR FLU A (Negative) Influenza Type B (PCR) Negative PCR FLU B (Negative) RSV (PCR) Negative PCR RSV (Negative) POC Troponin I 0.01 (0.01-0.04) ng/ml Imaging Data CT scan - head: Attestation: I have reviewed the pertinent imaging results. Radiologist's impression: Patient: WISAM PEDRO Facility:?[facility] Patient ID:?[id number] Site Patient ID:?[id number] Site :?[id number] Study:?CT-Head COD ETRAUMA W/O-07/02/2024 10:09:19 AM Ordering Physician:Julito Miller Final Report: INDICATION: Headaches. Trauma TECHNIQUE: Noncontrast axial CT of the head is submitted. Compared to prior study from February 04, 2024. FINDINGS: Mild cerebral atrophy. 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 The remainder of the ventricles, sulci and gyri are of normal size, shape and contour for age and degree of atrophy. Midline structures are centrally located. No convincing evidence of suspicious intra- or extra-axial fluid collections. Minimal patchy regions of decreased attenuation within the periventricular and subcortical white matter of both cerebral hemispheres. Soft tissue swelling overlying the left orbit likely representing presence of a hematoma or laceration. IMPRESSION: 1. No radiographic evidence of acute intracranial abnormalities. 2. Mild cerebral atrophy. 3. 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 4. Minimal supratentorial white matter changes that are non-specific, but statistically most likely related to chronic small vessel ischemic disease. 5. Soft tissue swelling overlying the left orbit likely representing presence of a hematoma or laceration. Please note that all CT scans at this facility use dose modulation, iterative reconstruction, and/or weight-based dosing when appropriate to reduce radiation dose to as low as reasonably achievable. Dictated by Octavio Ho MD @ 07/02/2024 10:13:18 AM (Electronic Signature) CT- Other: Attestation: I have reviewed the pertinent imaging results. Radiologist's impression: Patient: WISAM PEDRO Facility:?[facility] Patient ID:?[id number] Site Patient ID:?[id number]. Site :?[id number] Study:?CT-Spine Cervical CODE TRAUMA W/O-07/02/2024 10:10:30 AM Ordering Physician:Julito Miller Final Report: Indication: Neck pain. Trauma. Technique: Noncontrast axial CT of the cervical spine with coronal and sagittal reformats are provided. No comparisons. Findings: The overall stature, alignment of the cervical spine is within normal limits. No convincing evidence of suspicious bony fragments narrowing the central canal or neural foramina. Prevertebral soft tissues, cervical airway, dens and lateral masses are within normal limits. Mild to moderate scattered degenerative changes of the cervical spine. Impression: 1. No convincing radiographic evidence of acute osseous injury. 2. [id number] scattered degenerative changes of the cervical spine. Please note that all CT scans at this facility use dose modulation, iterative reconstruction, and/or weight-based dosing when appropriate to reduce radiation dose to as low as reasonably achievable. Dictated by Octavio Ho MD @ 07/02/2024 10:14:20 AM (Electronic Signature) XR lumbar spine: Attestation: I have reviewed the pertinent imaging results. Radiologist's impression: Patient: WISAM PEDRO Facility:?[facility] Patient ID:?[id number] Site Patient ID:?[id number]. Site :?[id number] Study:?XRay-Spine Lumbar 3 VIEW: CODE TRAUMA-07/02/2024 12:30:24 PM Ordering Physician:Julito Miller Final Report: INDICATION: Lower back pain, fall COMPARISON: None. TECHNIQUE: Three view lumbar spine radiographs including AP, lateral, lateral lumbosacral spot. FINDINGS: There are 5 nonrib bearing lumbar type vertebral bodies and a rudimentary S1-2 disc space. There is some mild superior endplate wedging of T12. No comparison exams available. No lumbar level fracture. There is an L4-5 laminectomy with posterior instrumented fusion. There are bilateral pedicle screws and paired vertical rods. Hardware is intact without loosening, failure, or migration. There appears to be solid bony fusion at the operative level. Non operative multilevel moderate to severe disc space narrowing with several large bridging and non bridging osteophytes anteriorly and laterally. Bilateral L5-S1 facet arthritis. Normal bone mineralization. No focal bone lesions. Cholelithiasis. Atherosclerotic vascular calcifications. IMPRESSION: 1. Very mild wedging of the T12 superior endplate could be an acute compression fracture. No comparison imaging is available. 2. No other acute or traumatic appearing findings in the lumbar spine. Dictated by Miriam Beaulieu MD @ 07/02/2024 1:16:44 PM (Electronic Signature) ECG Data Attestation: I personally reviewed and interpreted this ECG as follows: (Atrial fibrillation with some obvious atrial flutter with variable block, rate 56 beats per minute.) Prior ECG tracings: available for review (Compared to 02/04/2024, was in sinus rhythm with first-degree AV block at that time.) Discharge Plan Discharge Clinical Impression: Fall, Laceration of face, T12 compression fracture Patient Disposition: Home, Self-Care Condition: Stable Instructions: Laceration (ED), Vertebral Compression Fracture (ED), Fall Prevention for Older Adults (ED) Additional Instructions: Take Tylenol 1000 mg up to 4 times a day for 1-2 weeks as needed for pain management. If this is not controlling your pain, may need to consider further evaluation and trial of narcotic pain medicines. Can try some ice or heat to her back and use which ever makes you feel better. You need to schedule follow- up in about 1 week's time, stitches will need to be removed from your laceration at that time and you can follow-up on your back at that time or before if needed. Bringing x-ray imaging report to your primary provider. Will write for some Zofran in case you do have further nausea vomiting symptoms. You may have an underlying stomach bug such as gastroenteritis. If you do have some diarrhea, this is very likely. Prescriptions: New ondansetron 4 mg tablet,disintegrating 4 mg PO Q6H PRN (Reason: nausea and vomiting) Qty: 10 0RF No Action glimepiride 1 mg tablet 1 mg PO BID metformin 1,000 mg tablet 1,000 mg PO BID metoprolol succinate 25 mg tablet extended release 24 hr 25 mg PO QAM tamsulosin 0.4 mg capsule 0.4 mg PO QPM simvastatin 20 mg tablet 20 mg PO DAILY aspirin 325 mg capsule 325 mg PO DAILY atorvastatin 40 mg tablet 40 mg PO QPM clopidogrel 75 mg tablet 75 mg PO DAILY Eliquis 5 mg tablet 5 mg PO BID Follow Up/Referrals: Provider,Not a Local [Non-Staff] - Stand Alone Forms: [facility] Info Instructions Procedures Laceration Laceration 1: Pre procedure diagnosis: Left upper eyelid laceration just below eyebrow Post procedure diagnosis: Same Site marking: not applicable Name of person performing procedure: Angela Roper Site: face Side (If applicable): left Size (cm): 1.5 Description: linear Depth: simple, single layer Local Anesthetic: bupivacaine 0.25% and with epi Amount of anesthesia used (mL): 5 (5 mL drawn up but only 3 mL used locally) Pre-repair: wound explored and irrigated extensively Skin layer closed with: other (Ethilon) Size (cm): 4-0 Number of sutures: 5 Technique: simple, interrupted Wound cleansing: sterile water Estimated blood loss (if any): none (While doing procedure, obvious blood loss of known volume prior to arrival) Conclusion: patient tolerated procedure
[2024-07-02] MEDS: 0.9 % SODIUM CHLORIDE 500 ML 500 ML IV (10:50)
[2024-07-02 10:54] LABS: Lactate* 1.5 mmol/L (0.5-1.9)
[2024-07-02 10:55] LABS: Basophils Absolute Auto 0.01 K/uL (0.00-0.30); Basophils Percent Auto 0.2 % (0.0-3.0); Eosinophils Absolute Auto 0.05 K/uL (0.00-0.50); Eosinophils Percent Auto 0.8 % (0.0-7.0); Hematocrit 37.1 % (37.0-53.0); Hemoglobin* 12.3 gm/dL (13.5-17.5); Immature Granulocytes Abs Auto 0.01 K/uL (0.00-0.30); Immature Granulocytes Pct Auto 0.2 %; Lymphocytes Percent Auto 8.3 % (20-44); Mean Corpuscular HGB Conc 33 gm/dL (32-36); Mean Corpuscular Hemoglobin 32 pg (26-34); Mean Corpuscular Volume 97 fL (80-100); Monocytes Percent Auto 5.1 % (0.0-11.0); Neutrophils Percent Auto 85.4 % (42.0-72.0); Platelet Count* 189 K/uL (140-440); RDW Coefficient of Variation % 13.9 % (11.5-15.5); Red Blood Count 3.83 m/uL (4.30-5.90); Troponin, Point-of-Care* 0.01 ng/ml (0.01-0.04); White Blood Count* 6.62 K/uL (4.50-11.00)
[2024-07-02 10:56] LABS: Slide Review Reflex No
[2024-07-02 11:07] LABS: PCR FLU A Negative PCR FLU A (Negative); PCR FLU B Negative PCR FLU B (Negative); PCR RSV Negative PCR RSV (Negative); SARS PCR* Negative SARS-CoV-2 (Negative)
[2024-07-02 11:11] LABS: Albumin* 3.7 g/dL (3.3-5.0)
[2024-07-02 11:12] LABS: Chloride* 106 mmol/L (96-114); Sodium* 134 mmol/L (135-149)
[2024-07-02 11:14] LABS: Alkaline Phosphatase* 38 U/L (40-150); Anion Gap 7 mEq/L (7-15); Aspartate Amino Transferase* 13 U/L (12-35); Bilirubin Total* 1.1 mg/dL (0.1-1.5); Blood Urea Nitrogen* 17 mg/dL (7-30); Carbon Dioxide* 21 mmol/L (20-32); Creatinine* 0.7 mg/dL (0.5-1.5); Est. Creatinine Clearance* 68.98; Estimated Glomerular Filt Rate 95 ml/min
[2024-07-02 11:15] LABS: Alanine Aminotransferase* 13 U/L (4-50); Calcium* 8.7 mg/dL (8.4-10.6); Glucose* 134 mg/dL (60-115)
[2024-07-02 11:27] LABS: NT Pro B Type NatriureticPept* 4730 pg/mL; Troponin I* < 0.01 ng/mL (0.01-0.04)
--- NOTE | 2024-07-02 12:07 | CRLHL7_ITS ---
For Patients: As a result of the Cures Act, medical imaging exams and procedure reports are released immediately into your electronic medical record. You may view this report before your referring provider. If you have questions, please contact your health care provider. INDICATION: Lower back pain, fall COMPARISON: None. TECHNIQUE: Three view lumbar spine radiographs including AP, lateral, lateral lumbosacral spot. FINDINGS: There are 5 nonrib bearing lumbar type vertebral bodies and a rudimentary S1-2 disc space. There is some mild superior endplate wedging of T12. No comparison exams available. No lumbar level fracture. There is an L4-5 laminectomy with posterior instrumented fusion. There are bilateral pedicle screws and paired vertical rods. Hardware is intact without loosening, failure, or migration. There appears to be solid bony fusion at the operative level. Non operative multilevel moderate to severe disc space narrowing with several large bridging and non bridging osteophytes anteriorly and laterally. Bilateral L5-S1 facet arthritis. Normal bone mineralization. No focal bone lesions. Cholelithiasis. Atherosclerotic vascular calcifications. IMPRESSION: 1. Very mild wedging of the T12 superior endplate could be an acute compression fracture. No comparison imaging is available. 2. No other acute or traumatic appearing findings in the lumbar spine. Dictated by Miriam Beaulieu MD @ 07/02/2024 1:16:44 PM (Electronically Signed)
[2024-07-02] MEDS: ACETAMINOPHEN 500 MG TABLET 1000 MG PO (12:22)
[2024-07-02 14:13] LABS: Hemoglobin* 12.3 gm/dL (13.5-17.5)
== END 2024-07-02 14:38 | disposition home or self-care (01) ==
PROVIDERS: Emergency Provider Family Medicine; PCP Family Medicine
DX: R55 Syncope and collapse (principal); S01.112A Laceration without foreign body of left eyelid and periocular area, initial encounter; W19.XXXA Unspecified fall, initial encounter; S22.080A Wedge compression fracture of T11-T12 vertebra, initial encounter for closed fracture
CPT/HCPCS: 12011; 36415; 70450; 72100; 72125; 80053; 83605; 83880; 84484; 85018; 85025; 87631; 93005; 94761; 99284; 99291; A9270; G0390; J7030